=== PATIENT | female | born 1970 | race Two or more races ===

== ENCOUNTER 2017-11-24 22:05 | Emergency (ER) | payer SELFPAY ==
[~2017-11-24] VITALS: Ht 162.6 cm; Wt 63.5 kg
[2017-11-24 22:30] VITALS: BP 123/73
[2017-11-25 02:20] VITALS: BP 123/73
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
== END 2017-11-25 02:20 | disposition home or self-care (01) ==
LOC: EDBD 22:05 → EMR 22:54
DX: R53.1 Weakness (principal); F91.9 Conduct disorder, unspecified
CPT/HCPCS: 99283

== ENCOUNTER 2017-11-25 10:29 | Emergency (ER) | payer SELFPAY ==
[~2017-11-25] VITALS: Ht 152.4 cm; Wt 59.0 kg
[2017-11-25 10:35] VITALS: BP 115/80
[2017-11-25] MEDS ORDERED: Naloxone 1mg/ml 2ml IM ONE (12:15)
[2017-11-25 12:28] VITALS: BP 100/64
[2017-11-25 13:20] VITALS: BP 100/64
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
== END 2017-11-25 13:20 | disposition home or self-care (01) ==
LOC: EMR 10:54
DX: F19.10 Other psychoactive substance abuse, uncomplicated (principal)
CPT/HCPCS: 96372; 99283; J2310

== ENCOUNTER → 2017-11-25 | Emergency (ER) | payer SELFPAY ==
[~2017-11-25] VITALS: Ht 160 cm; Wt 59.9 kg
[2017-11-25 16:16] VITALS: BP 124/81
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
== END | disposition left against medical advice (07) ==
LOC: EMR 17:50
DX: R41.82 Altered mental status, unspecified (principal)
CPT/HCPCS: 99283

== ENCOUNTER 2017-11-26 17:17 | Emergency (ER) | payer MEDICAID ==
[~2017-11-26] VITALS: Ht 154.9 cm; Wt 51.7 kg
[2017-11-26 17:44] VITALS: BP 104/58
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
[2017-11-26] MEDS ORDERED: LORazepam 1mg tab ORAL ONE (18:00)
[2017-11-26 19:08] LABS: BASOPHILS % (AUTO) 1.3 % (0.0-2.0); EOSINOPHILS % (AUTO) 2.2 % (0.0-3.0); HEMATOCRIT 38.6 % (37.0-47.0); LYMPHOCYTES % (AUTO) 23.7 % (20.0-45.0); MEAN CORPUSCULAR VOLUME 91 FL (80-99); MONOCYTES % (AUTO) 7.4 % (1.0-10.0); NEUTROPHILS % (AUTO) 65.6 % (45.0-75.0); PLATELET COUNT 254 K/UL (150-450); RED BLOOD COUNT 4.23 M/UL (4.20-5.40); RED CELL DISTRIBUTION WIDTH 12.4 % (11.6-14.8); WHITE BLOOD COUNT 10.3 K/UL (4.8-10.8)
[2017-11-26 19:25] LABS: ANION GAP 10 mmol/L (5-15); BLOOD UREA NITROGEN 15 mg/dL (7-18); CARBON DIOXIDE 26 MMOL/L (21-32); CHLORIDE 105 MMOL/L (98-107); CREATININE 0.7 MG/DL (0.55-1.30); POTASSIUM 3.3 MMOL/L (3.5-5.1); SODIUM 141 MMOL/L (136-145)
[2017-11-26 19:28] LABS: ALANINE AMINOTRANSFERASE 22 U/L (12-78); ALBUMIN 2.9 G/DL (3.4-5.0); ALBUMIN/GLOBULIN RATIO 0.9 (1.0-2.7); ALKALINE PHOSPHATASE 90 U/L (46-116); ASPARTATE AMINO TRANSFERASE 20 U/L (15-37); BILIRUBIN,TOTAL 0.4 MG/DL (0.2-1.0)
[2017-11-26 20:13] VITALS: BP 112/69
[2017-11-26 21:05] LABS: APPEARANCE,URINE CLEAR; BILIRUBIN, URINE NEGATIVE (NEGATIVE); GLUCOSE, URINE (UA) NEGATIVE (NEGATIVE); KETONES,URINE 2+ (NEGATIVE); LEUKOCYTE ESTERASE ,URINE 1+ (NEGATIVE); NITRITE,URINE NEGATIVE (NEGATIVE); PH,URINE 6 (4.5-8.0); PROTEIN,URINE 1+ (NEGATIVE); UROBILINOGEN,URINE 8 MG/DL (0.0-1.0)
[2017-11-26 21:07] LABS: COLOR,URINE YELLOW
[2017-11-27] VITALS (8 sets, daily range): BP systolic 91–127; BP diastolic 54–87
[2017-11-28] VITALS (7 sets, daily range): BP systolic 102–112; BP diastolic 61–78
[2017-11-28] MEDS ORDERED: Ketorolac 60mg Inj IM ONE (08:45)
[2017-11-28] MEDS ORDERED: LORazepam 0.5mg tab ORAL ONE (08:45)
[2017-11-28] MEDS ORDERED: ZyPREXA Zydis 10mg tab ORAL ONE (08:45)
--- NOTE | 2017-11-28 15:43 | Consultation ---
History of Present Illness General Date patient seen: Nov 28, 2017 Chief Complaint: General Complaint Present Illness HPI 47-year-old female with a history of personality disorder and depression brought in by [employer] on a 5150. the pt has been irritable and short with staff. the pt stated that she has lost her car and job therefor she doesn't have a place to go. the pt stated that she is depressed and suicidal. the pt is not endorsing psychotic or manic sxs Allergies: Coded Allergies: No Known Allergies (Unverified , 11/25/17) Patient History History Provided By: Patient, Medical Record, PMD Healthcare decision maker Resuscitation status Advanced Directive on File Past Medical/Surgical History Past Medical/Surgical History: (1) Factitious disorder (2) Substance use disorder (3) Verbalizes suicidal thoughts Review of Systems Psychiatric: Reports: prior hx, anxiety, depressed feelings Physical Exam General Appearance: no apparent distress, alert Neurologic: oriented x 3, responsive, depressed affect Last 24 Hour Vital Signs Date Time Temp Pulse Resp B/P (MAP) Pulse Ox O2 Delivery O2 Flow Rate FiO2 11/28/17 08:26 97.9 89 20 107/67 100 Room Air 97.9 11/28/17 06:00 98.2 84 18 108/65 100 Room Air 98.2 11/28/17 03:33 98.1 78 14 112/71 99 Room Air 98.1 11/28/17 00:36 98.1 81 18 102/61 95 Room Air 98.1 11/27/17 22:30 98.1 78 14 110/54 98 Room Air 98.1 11/27/17 22:10 98.1 80 15 91/58 99 Room Air 98.1 11/27/17 18:54 98.4 11/27/17 18:34 98.4 80 20 100/62 99 Room Air 98.4 Height (Feet): 5 Height (Inches): 1.00 Weight (Pounds): 114 Assessment/Plan Status: stable Assessment/Plan 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 Gabriela Coronado M.D. Nov 28, 2017 15:43
== END 2017-11-28 21:35 ==
LOC: EDBD 17:17 → EMR 18:13
DX: R45.851 Suicidal ideations (principal); F32.9 Major depressive disorder, single episode, unspecified; F41.9 Anxiety disorder, unspecified
CPT/HCPCS: 36415; 80053; 80307; 80329; 81003; 84703; 85025; 99283; J8499